=== PATIENT | female | born 1975 | race Caucasian/White ===

== ENCOUNTER 2023-06-21 09:01 | Emergency (ER) | payer MEDICARE ==
--- NOTE | 2023-06-21 09:37 | XRAY Report ---
PROCEDURE: Foot 3+V RT INDICATIONS: Trauma TECHNIQUE: 3 views of the foot were acquired. COMPARISON: None. FINDINGS: Bones: There is a inferior calcaneal spur with lucency traversing it. No suspicious bony lesions. Soft tissues: No suspicious soft tissue calcifications or masses. IMPRESSION: Fractured calcaneal spur. Reviewed by: Chandrika Astorga MD on 06/21/2023 9:36 AM [facility] Approved by: Chandrika Astorga MD on 06/21/2023 9:36 AM [facility] Station ID: [id number]
--- NOTE | 2023-06-21 10:04 | ED Physician Documentation ---
PD HPI LOWER EXT INJURY - Stated complaint Stated Complaint: HEEL INJURY - Chief complaint Chief Complaint: Trauma Ext - History obtained from History obtained from: Patient - History of Present Illness PD HPI LOW EXT INJURY LOCATION: Right, Sole / plantar Type of injury: Other (jumped off a wall approximately 5-6 feet, landed on heel) Where injury occurred: [place] ([place] Timing - onset: Yesterday Timing - details: Abrupt onset Pain level max: 3 Pain level now: 3 Improved by: Rest Worsened by: Moving Similar symptoms before: Has not had sx before Recently seen: Not recently seen PD PAST MEDICAL HISTORY - Past Medical History Past Medical History: Yes Cardiovascular: None Respiratory: None Neuro: None Psych: Anxiety - Past Surgical History Past Surgical History: Yes General: Cholecystectomy, Gastric surgery, Other /[employer]: Tubal ligation - Present Medications Home Medications: Ambulatory Orders Medication Instructions Recorded Confirmed Oxycodone HCl/Acetaminophen 1 - 2 each PO Q6H PRN #14 tablet 06/21/23 [Percocet 5-325 mg Tablet] - Allergies Allergies/Adverse Reactions: Allergies Allergy/AdvReac Type Severity Reaction Status Date / Time almond Allergy Anaphylaxis Verified 06/21/23 09:11 butorphanol [From Stadol] Allergy Anaphylaxis Verified 06/21/23 09:10 latex Allergy Hives Verified 06/21/23 09:10 cephalexin [From Keflex] AdvReac Emesis Verified 06/21/23 09:10 - Social History Does the pt smoke?: No Smoking Status: Never smoker Does the pt drink ETOH?: No Does the pt have substance abuse?: No - Immunizations Immunizations are current?: Yes - POLST Patient has POLST: No PD ED PE NORMAL - General General: Alert and oriented X 3 - HEENT HEENT: Atraumatic - Cardiac Cardiac: RRR, No murmur - Respiratory Respiratory: No respiratory distress - Back Back: No spinal TTP - Derm Derm: Normal color, Warm and dry - Extremities Extremities: Other (She has point tenderness to palpation on the plantar aspect of her calcaneus. No pain with squeezing. Distally she is neurovascular intact she can plantar and dorsiflex her toes. She does have some mild pain with kassidy ntarflexion. Cap refill less than 2 seconds. No ankle pain. No knee pain. No ) - Neuro Neuro: Alert and oriented X 3, No motor deficit Results - Vitals Vitals: Vital Signs - 24 hr 06/21/23 06/21/23 09:06 11:08 Temperature 36.4 C L Heart Rate 69 71 Respiratory 20 15 Rate Blood Pressure 133/69 H 110/64 O2 Saturation 98 100 Oxygen O2 Source Room air - Rads (name of study) foot Relevant Findings:: Final report received, EMP independent interpretation of test (Fracture of calcaneal spur.), Other PD Medical Decision Making - ED course Complexity details: considered differential, d/w sql consultant ED course: Discussed her presentation and x-ray findings with Dr. Hernandez. He agreed that conservative measures such as walking boot and crutches should be fine for this injury. The patient is from [place] will be following up with her orthopedist when she is back home. Does not represent an actual calcaneus fracture, but just a fracture of the spur which is a relatively rare injury but would explain her relatively benign though not free of tenderness presentation.She is placed in a walking boot and given crutches. Will give her a small prescription for pain meds as needed.Will send her home with a copy of her x-rays on disc. - Consults Consults: Discussed case with (Dr. Hernandez, ortho) Departure - Departure Disposition: 01 Home, Self Care Clinical Impression: Calcaneal spur of right foot, Fracture of foot Condition: Good Record reviewed to determine appropriate education?: Yes Instructions: ED Fx Foot, ED Boot Aircast Walker Prescriptions: Oxycodone HCl/Acetaminophen [Percocet 5-325 mg Tablet] 1 - 2 each PO Q6H PRN #14 tablet PRN Reason: pain Comments: Follow-up with an orthopedic surgeon when you are home in [place]. Use the walking boot and crutches. Take pain medicine as needed. This injury should get better with conservative therapy, which is to say you should not need surgery. At any rate safe to go home today with outpatient follow-up with a foot and ankle surgeon and/or orthopedic surgeon. Forms: PCP List Discharge Date/Time: 06/21/23 11:10
[2023-06-21 11:10] VITALS: BP 110/64; O2SAT 100
== END 2023-06-21 11:10 | disposition home or self-care (01) ==
LOC: ED 09:01
DX: S92.811A Other fracture of right foot, initial encounter for closed fracture (principal); M77.31 Calcaneal spur, right foot; W17.89XA Other fall from one level to another, initial encounter; Y93.39 Activity, other involving climbing, rappelling and jumping off; Y92.830 Public park as the place of occurrence of the external cause
CPT/HCPCS: 99283; 99284